=== PATIENT | female | born 1965 | race Caucasian/White ===

== ENCOUNTER 2019-02-20 06:28 | Day surgery (SDC) | payer OTHER ==
[~2019-02-20 06:28] MED LIST: Buffered Lidocaine 1% SYRIN* 1 ML/SYRINGE INTRADERM ONE; Famotidine IV* 10 MG/ML 2 ML (20 mg) IV ONE; Lactated Ringers 1000 ML Bag* 1,000 ML IV SCH
[2019-02-20] MEDS ORDERED: ceFAZolin 2 GM PREMIX in ORs 2 GM/50 ML BAG ONE (06:44)
[2019-02-20] MEDS ORDERED: Famotidine IV* 10 MG/ML 2 ML (20 mg) ONE (06:54)
[2019-02-20] MEDS ORDERED: Lidocaine 1% INJ* 10 MG/ML 30 ML SDV ONE (07:23)
[2019-02-20] MEDS ORDERED: Dexamethasone IV* 4 MG/ML 1 ML (4 MG) ONE (07:24)
[2019-02-20] MEDS ORDERED: Bupivacaine 0.5% SDV PF* 30ML VIAL ONE (07:24)
[2019-02-20] MEDS ORDERED: Midazolam* 1 MG/ML 5 ML VIAL (5 MG) ONE (07:33)
[2019-02-20] MEDS ORDERED: Ketorolac INJ* 30 MG/ML 1 ML VIAL ONE (07:49)
[2019-02-20] MEDS ORDERED: Ondansetron INJ* 2 MG/ML VIAL ONE (07:49)
[2019-02-20] MEDS ORDERED: Propofol* 10 MG/ML 20 ML BTL ONE (07:49)
[2019-02-20] MEDS ORDERED: Naloxone* 0.4 MG/ML 1 ML VIAL IV PRN (08:11)
[2019-02-20] MEDS ORDERED: HYDROcodone/ACETAMIN 5-325 MG* 1 TAB PO PRN (08:11)
[2019-02-20] MEDS ORDERED: DiMENhydriNATE IV* 50 MG/ML VIAL IV PUSH PRN (08:11)
[2019-02-20] MEDS ORDERED: HYDROmorphone INJ1* 1 MG/ML SYRINGE IV PRN (08:11)
[2019-02-20] MEDS ORDERED: HYDROmorphone INJ* 0.5 MG/0.5 ML SYRINGE ONE (08:13)
[2019-02-20 09:13] VITALS: BP 115/66
--- NOTE | 2019-02-20 13:59 | OP ---
OPERATIVE REPORT: DATE OF OPERATION: 02/20/19 DATE OF : 67 SURGEON: Alejandro Carmen DPM REACTOR SERVICE OPERATOR: None. ANESTHESIA: MAC with local. PRE-OP DIAGNOSIS: Painful bunion deformity with hallux limitus, left foot. POST-OP DIAGNOSIS: Painful bunion deformity with hallux limitus, left foot. OPERATIVE PROCEDURE: Bunionectomy with first metatarsal osteotomy in the left foot. PATHOLOGY: Degenerative bone. HEMOSTASIS: Pneumatic ankle tourniquet. ESTIMATED BLOOD LOSS: Less than 20 cc. MATERIALS: A 3.0 mm cannulated [place] screw. INDICATIONS: The patient with chronic left forefoot pain and deformity that causes pain when walking and wearing shoes. She had similar problem on the right foot, which was dealt with surgically sever al years ago and she would like a similar treatment on the left foot as it causes pain on a regular b asis. DESCRIPTION OF PROCEDURE: The patient was brought to the operating room, placed on the operating donya m table in a supine position. Anesthesia department administered IV sedation and a peripheral nerve block was performed about the left foot with a 1:1 mixture of 1% lidocaine plain and 0.5% Marcaine pl ain. The left foot was then prepped and draped in the usual fashion. The left foot was then exsangu inated with an Esmarch bandage and a pneumatic ankle tourniquet was inflated to 250 mmHg about a well -padded left ankle. Attention was directed to the dorsal medial aspect of the left great toe joint, where a curvilinear incision was made. The incision was deepened through subcutaneous tissues with c are being taken to retract the neurovascular structures and cauterize superficial bleeders as needed. Next, an inverted L capsular incision was made and allowed for exposure of the great toe joint in d istal first metatarsal. The joint was inspected and there was an area of approximately 0.6 x 0.8 cm in partial to full thickness cartilaginous defect. Some of the loose portions of the cartilage were debrided. A McGlamry elevator was needed to free plantar and lateral adhesions of the sesamoid appar atus. Next, an intracapsular lateral release was performed, releasing the lateral capsule, adductor hallucis, and portion of lateral fibular sesamoid ligament. The extensor hallucis brevis tendon was identified dorsally as well and transected. This allowed for relaxation of lateral contractures. Ne xt, the medial eminence on the first metatarsal head was resected with sagittal saw in a manner to pr eserve the sagittal groove. Next, the Chevron type first metatarsal head osteotomy was performed wit h the apex just dorsal and proximal to the geometric center. The plantar wing was cut, angled slight ly plantar proximally of the capital fragment. Next, 2 dorsal cuts were made removing a small paralle l wedge bone to allow for some decompression and plantar flexion of the capital fragment as well. Th e capital fragment was then transposed laterally to correct the position and the wire from the screw set was used to temporary fixation. The position was assessed with the mini C-arm. Next using stand rommel technique, a 3.0 mm cannulated [place] screw was placed across the osteotomy site. The care was taken to ensure that the tip of the screw did not penetrate the joint. This was checked both with th e mini C-arm as well as visual inspection. The temporary fixation also had been removed. The osteot melvin was found to be solid with no detectible motion or gapping. The screw was 2 fingers tight. The redundant medial shelf of bone was resected with sagittal saw and a power laya was used to smooth rou gh edges. The surgical site was flushed with copious amounts of normal sterile saline. Next, a medi al capsulorrhaphy was performed resecting redundant medial capsule. Next with holding the hallux in rectus position, the capsule and periosteal tissues were reapproximated and secured with 2-0 Vicryl. The subcutaneous tissues were reapproximated with 4-0 Vicryl and the skin was closed with 5-0 nylon. 12 mg of dexamethasone phosphate was infiltrated about the surgical site. The incision was dressed with Xeroform gauze, 4x4 gauze, David, and light Coban wrap. The pneumatic ankle tourniquet was def lated about the left ankle and a prompt hyperemic response was noted in all 5 digits of the patient's left foot. Having appeared to have tolerated the procedures and anesthesia well, the patient was tr ansported via cart from the operating room to recovery in satisfactory condition with cap refill less than 3 seconds to all digits of the left foot. [id number]/[facility] #: [id number]
== END 2019-02-20 09:47 | disposition home or self-care (01) ==
LOC: OREAST 06:28
PROVIDERS: ATTEND Podiatrist Foot Surgery
DX: M21.612 Bunion of left foot (principal)
CPT/HCPCS: 76000; 88304; 88311; C1713; C1776; J0690; J1100; J1170; J1885; J2250; J2405; J2704; J3490